=== PATIENT | female | born 1965 | race Caucasian/White ===

== ENCOUNTER → 2017-06-19 | Outpatient (CLI) | payer BC ==
[~2017-06-19] MED LIST: ATOR10TA88 PO; CHOL200010 PO; FUROSEMIDE INJ 10 MG/ML 2 ML VIAL IV ONE; GINK40TA3 PO; GINS1CAP PO; OMEGCAP2 PO; OXYC-643 PO
--- NOTE | 2017-06-19 14:18 | DIAGNOSTIC IMAGING REPORT ---
RENAL SCAN DIURETIC (MAG 3) CLINICAL HISTORY: 52-year-old female with history of hydronephrosis.. TECHNIQUE: A nuclear diuretic renal scan is performed following the IV administration of 8.6 mCi technetium 99m radiolabeled MAG3. Posterior flow images were acquired at one frame every two seconds for a total 24 frames. Posterior static images were acquired every 5 minutes for a total of 40 minutes. IV Lasix was administered at 20 minutes. Renal curves were calculated. COMPARISON: 04/10/2010. FINDINGS: On the flow images, relative photopenia in the interpolar region of the left kidney in comparison to the right, which demonstrates prompt perfusion. On the delayed images, persistent photopenic defect in the interpolar region of the left kidney. Relatively less accumulation of radiotracer in the left kidney in comparison to the right. Persistence of radiotracer within the single dilated right renal collecting system. Normal radiotracer accumulation in the bladder. Subsequently, clearance phase imaging demonstrates time to peak on the right measuring 16 minutes and on the left was measuring 6 minutes. The time to half max pre-Lasix on the right measures 15 minutes and on the left measures 13 minutes. The time to half post Lasix on the right measures 11 minutes and on the left measures 6 minutes. Greater than 50% retention of radiotracer in the right collecting system beyond 10 minutes. No abnormal retention in the left kidney post Lasix. Split function measurements of 52% on the right and 48% on the left. Reference ranges: Normal time to peak: 3 to 5 minutes. Normal time to half max: pre-Lasix 8-12 minutes. Washout of at least 50% of tracer within 10 minutes post Lasix normal; if gaited and 50% retention between 10 to 20 minutes, indeterminate; if greater than 50% retention beyond 20 minutes possibly obstructed. IMPRESSION: 1. Photopenic defect in the interpolar region of the left kidney could suggest focal scarring. Nonetheless, otherwise the left kidney demonstrates essentially near perfusion and excretion. No evidence of left renal collecting system obstruction. 2. Delayed excretion of the right kidney with abnormal retention in the right renal collecting system. Greater than 50% retention likely suggestive of a reservoir effect from a dilated system. No findings to suggest obstructed right renal collecting system. Correlation with ultrasound could be considered if clinically warranted. 3. Relative renal function on the right 52% and on the left kidney 48%. Electronically signed by: Raphael Pollard M.D. 06/19/2017 2:16 PM Dictated Date/Time: 06/19/2017 2:07 PM
== END | disposition home or self-care (01) ==
LOC: C.NUCL 11:01
PROVIDERS: ATTEND Urology
DX: N13.30 Unspecified hydronephrosis (principal)

== ENCOUNTER → 2018-05-25 | Day surgery (SDC) | payer BC ==
[2018-05-08 14:28] VITALS: BMI 26.0
--- NOTE | 2018-05-08 16:04 | PAT Medication Instructions ---
Service Date May 08, 2018. Current Home Medication List Garcinia Cambogia-Chromium (Garcinia Cambogia), 3 TAB PO BID Ousdlqhjuar-Gunthdtfnup-Rnq C- (Glucosamine Chondroitin), 1 TAB PO QAM Multivitamins/Minerals (Mvi With Minerals), 1 TAB PO QAM [Amberen], 2 TAB PO QAM Medication Instructions For Your Scheduled Surgery - Hold the following medications starting 05/11/18: Garcinia Cambogia-Chromium (Garcinia Cambogia), 3 TAB PO BID Wkvbhjzmvjg-Ofpbuleytjb-Ghd C- (Glucosamine Chondroitin), 1 TAB PO QAM [Amberen], 2 TAB PO QAM - Hold the following medications the morning of surgery: Multivitamins/Minerals (Mvi With Minerals), 1 TAB PO QAM If you have any questions please call us at [phone] or [phone] or [phone]
[2018-05-11 09:14] VITALS: BMI 26.0
--- NOTE | 2018-05-11 10:50 | DIAGNOSTIC IMAGING REPORT ---
CHEST 2 VIEWS ROUTINE CLINICAL HISTORY: Preoperative evaluation. COMPARISON STUDY: Chest radiograph January 19, 2013. FINDINGS: Incidental note is made of an anterior cervical spine fusion. Lung volumes are normal. No pneumothorax or pleural effusion is noted. There is no consolidation or evidence for pulmonary edema. Cardiomediastinal silhouette is normal. IMPRESSION: No acute cardiopulmonary findings. Electronically signed by: Derrick Hemphill M.D. 05/11/2018 10:49 AM Dictated Date/Time: 05/11/2018 10:48 AM
[2018-05-11 11:29] LABS: BASO % 0.9 %; BASO ABS # 0.06 K/uL (0-0.2); EOS ABS # 0.26 K/uL (0-0.5); HEMOGLOBIN 13.9 g/dL (12.0-16.0); IG# 0.02 K/uL (0.00-0.02); LYMPH % 21.6 %; LYMPH ABS # 1.41 K/uL (1.2-3.4); MEAN CELL VOLUME 92.3 fL (80-100); MEAN CORPUSCULAR HEMOGLOBIN 30.5 pg (25-34); MEAN CORPUSCULAR HGB CONC 33.1 g/dl (32-36); MEAN PLATELET VOLUME 11.3 fL (7.4-10.4); MONO % 4.1 %; MONO ABS # 0.27 K/uL (0.11-0.59); NEUT % 69.1 %; NEUT ABS # 4.52 K/uL (1.4-6.5); PLATELET COUNT 223 K/uL (130-400); RED CELL DISTRIBUTION WIDTH CV 13.1 % (11.5-14.5); RED CELL DISTRIBUTION WIDTH SD 44.3 fL (36.4-46.3); WHITE BLOOD COUNT 6.54 K/uL (4.8-10.8)
[~2018-05-25] VITALS: Ht 157.5 cm; Wt 65.8 kg
[~2018-05-25] MED LIST changes: +AMBEREN PO; -ATOR10TA88 PO; +ATROPINE SULFATE 0.1 MG/ML 5ML SYR IV PRN; -CHOL200010 PO; +CIPR-255 PO; +CIPROFLOXACIN / D5W 400 MG IV SCH; +Cysto-Conray II 17.2% 250ML BOTTLE ONE; +DEXAMETHASONE SOD INJ 4 MG/ML VIAL ONE; +EpHEDrine SULFATE INJ 50 MG/ML AMP IV PRN; +FENTANYL CITRATE INJ 50 MCG/1 ML 2 ML VIAL IV PRN; +FENTANYL CITRATE INJ 50 MCG/1 ML 2 ML VIAL ONE; -FUROSEMIDE INJ 10 MG/ML 2 ML VIAL IV ONE; +GARC1TAB PO; -GINK40TA3 PO; -GINS1CAP PO; +GLUCTAB7 PO; +LACTATED RINGER'S 1000ML 1,000 ML IV SCH; +LIDOCAINE HCL 2% 2 ML VIAL (20MG/ML) ONE; +MIDAZOLAM HCL 1 MG/ML 2ML VIAL ONE; +MULT-513 PO; -OMEGCAP2 PO; +ONDANSETRON INJ 2 MG/ML 2 ML VIAL IV PRN; +ONDANSETRON INJ 2 MG/ML 2 ML VIAL ONE; -OXYC-643 PO; +OXYC7.5T65 PO; +OXYCODONE/ACETAMINOPHEN 7.5-325 TAB PO PRN; +PROPOFOL IV EMULSION 10 MG/ML 20 ML VIAL ONE; +TAMS0.4C38 PO
[2018-05-25 12:47] VITALS: BP 120/78; PULSE 78; TEMP 37.2; O2SAT 99; Ht 157.5 cm; Wt 65.8 kg
--- NOTE | 2018-05-25 14:29 | History & Physical Bridge Note ---
H&P Re-Evaluation Bridge Note: I have examined the patient, reviewed the History & Physical and in the interval since the performance of the History & Physical I have noted the following changes of clinical significance: No changes noted
--- NOTE | 2018-05-25 14:31 | Discharge Instructions ---
Discharge Instructions Date of Service May 25, 2018. Admission Reason for Admission: Hydronephrosis Discharge Discharge Diagnosis / Problem: Hydronephrosis Discharge Goals Goal(s): Decrease discomfort, Improve function Activity Recommendations Activity Limitations: resume your previous activity Lifting Limitations: gradually increase as tolerated Exercise/Sports Limitations: gradually increase as tolerated . Instructions / Follow-Up Instructions / Follow-Up May have blood in urine. may have pelvic discomfort. Call if any fevers or chills. Current Hospital Diet Patient's current hospital diet: Discharge Diet Recommended Diet: Regular Diet Procedures Procedures Performed: Cystoscopy and bilateral retrograde pyelograms Pending Studies Studies pending at discharge: no Medical Emergencies . Who to Call and When: Medical Emergencies: If at any time you feel your situation is an emergency, please call 911 immediately. . Non-Emergent Contact Non-Emergency issues call your: Primary Care Provider, Urologist Call Non-Emergent contact if: you have a fever, temperature is above 101, temperature is above 101.5, your pain is not controlled, your pain is unusual for you, your pain is concerning you . . "Provider Documentation" section prepared by Leandro Diallo. .
--- NOTE | 2018-05-25 16:47 | [facility] Operative Report ---
Operative Report Operative Date May 25, 2018. Pre-Operative Diagnosis Hydronephrosis and UTI Post-Operative Diagnosis Same, Significant right hydronephrosis with UPJ narrowing and high insertion Procedure(s) Performed Cystoscopy with bilateral retrograde pyelogram and Right ureteral dilation, ureteroscopy, and stent placement. Surgeon Yoel Estimated Blood Loss Minimal Findings Severe right hydronephrosis with high ureter insertion on renal pelvis Specimens None Drains 6 Fr Multilength on Right Anesthesia Type MAC Complication(s) none Disposition Recovery Room / PACU Indications History of reflux with hydronephrosis and UTI's. Risks and benefits discussed. Description of Procedure Patient was consented and brought back to the operating room. Patient was placed under anesthesia in the supine position and moved to the dorsal lithotomy position. Patient was prepped and draped in the regular sterile fashion. A time out was completed. A 30degree Cystoscope was placed into the bladder and the entire bladder was examined. The UO's were identified. Each side was was cannulized with a catheter and a retrograde pyelogram was completed. Minor hydro was noted on the left. The right was found to be severely enlarged with blunting of calyx and very high insertion of ureter on pelvis which narrowed UPJ. A wire was placed on the right. A ureteral access sheath and second safety wire were placed. This was used to dilate the right ureter to allow scope passage. The flexible ureteroscope was taken into the ureter. The entire ureter and renal pelvis were examined. The scope was able to pass the narrowed area of the UPJ. This appeared to restrict drainage. The scope was slowly removed with the wire left in place. Contrast was placed through the scope for a pyelogram to assist in stent placement. The entire ureter was examined as the scope was slowly removed. No obstructions or other areas of concern were noted. With the wire in place, a 6 Fr Double J stent was placed. It was confirmed with fluoroscopy. With the stent in place, the bladder was emptied. The scope was removed. The patient was cleaned, aroused from anesthesia, and transferred to the pacu in stable condition having tolerated the procedure well with no complications. I was present and participated in all aspects of the procedure. The patient will be monitored in the PACU until transferred. I attest to the content of the Intraoperative Record and any orders documented therein. Any exceptions are noted below.
--- NOTE | 2018-05-25 17:19 | DIAGNOSTIC IMAGING REPORT ---
RETROGRADE INCLUDES KUB CLINICAL HISTORY: BILATERAL RETROGRADES COMPARISON STUDY: CT of the abdomen and pelvis April 24, 2018. Fluoroscopy time: 1 minute and 33 seconds. FINDINGS: 15 fluoroscopic images were submitted for interpretation. Images demonstrate bilateral retrograde exams with severe right hydronephrosis demonstrated. Right ureteral stent was placed and appears appropriately positioned. IMPRESSION: Fluoroscopic images demonstrating bilateral retrograde exam with right ureteral stent insertion. Electronically signed by: Derrick Hemphill M.D. 05/25/2018 5:18 PM Dictated Date/Time: 05/25/2018 5:16 PM
--- NOTE | 2018-05-25 17:21 | Anesthesiology Progress Note ---
Anesthesia Post Op Note Date & Time May 25, 2018 at 17:21 Vital Signs Pain Intensity: 0 Vital Signs Past 12 Hours Date Time Temp Pulse Resp B/P (MAP) Pulse Ox O2 Delivery O2 Flow Rate FiO2 05/25/18 17:04 77 31 05/25/18 17:04 78 31 100 05/25/18 17:01 127/90 05/25/18 16:59 81 19 05/25/18 16:59 80 19 100 05/25/18 16:56 129/90 05/25/18 16:55 130/91 05/25/18 16:54 79 18 05/25/18 16:54 79 18 100 05/25/18 16:54 36.0 81 16 130/91 (102) 100 Oxymask 10 05/25/18 12:47 37.2 78 18 120/78 (92) 99 Room Air Notes Mental Status: alert / awake / arousable, participated in evaluation Pt Amnestic to Procedure: Yes Nausea / Vomiting: adequately controlled Pain: adequately controlled Airway Patency, RR, SpO2: stable & adequate BP & HR: stable & adequate Hydration State: stable & adequate Anesthetic Complications: no major complications apparent
[2018-05-25 17:45] VITALS: BP 129/79; PULSE 78; TEMP 37; O2SAT 97
[2018-05-25 18:15] VITALS: BP 123/80; PULSE 72; O2SAT 99
[2018-05-25 18:45] VITALS: BP 127/76; PULSE 67; TEMP 36.6; O2SAT 98
== END | disposition home or self-care (01) ==
LOC: C.ACU 12:07
PROVIDERS: ATTEND Urology
DX: N13.0 Hydronephrosis with ureteropelvic junction obstruction (principal); N39.0 Urinary tract infection, site not specified; Z87.891 Personal history of nicotine dependence; E78.00 Pure hypercholesterolemia, unspecified; Z79.899 Other long term (current) drug therapy